=== PATIENT | female | born 1985 | race Caucasian/White ===

== ENCOUNTER 2019-02-16 18:28 | Emergency (ER) | payer MEDICAID ==
[~2019-02-16] VITALS: Ht 167.6 cm; Wt 122.5 kg
[2019-02-16 18:35] VITALS: BP 131/77
[2019-02-16] MEDS ORDERED: IBUPROFEN 600 MG TABLET PO ONE ×2 (18:42→19:00)
== END 2019-02-16 18:45 | disposition home or self-care (01) ==
LOC: ER 18:28
DX: J02.0 Streptococcal pharyngitis (principal); Z60.2 Problems related to living alone

== ENCOUNTER 2019-07-01 22:16 | Emergency (ER) | payer MEDICAID ==
[~2019-07-01] VITALS: Ht 170.2 cm; Wt 127.0 kg
[2019-07-01 22:29] VITALS: BP 127/69
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
--- NOTE | 2019-07-01 22:43 | NUR ---
URINE COLLECTED AND SENT TO LAB
[2019-07-01] MEDS ORDERED: CYCLOBENZAPRINE 10 MG TABLET ONE (23:46)
[2019-07-02] MEDS ORDERED: CYCLOBENZAPRINE 10 MG TABLET PO ONE
== END 2019-07-01 23:51 | disposition home or self-care (01) ==
LOC: ER 22:25
DX: M54.6 Pain in thoracic spine (principal); M54.2 Cervicalgia; Z60.2 Problems related to living alone; V49.59XA Passenger injured in collision with other motor vehicles in traffic accident, initial encounter; Y93.89 Activity, other specified; Y92.413 State road as the place of occurrence of the external cause; Y99.8 Other external cause status
CPT/HCPCS: 72050-TC; 84703-TC

== ENCOUNTER 2020-12-27 16:07 | Emergency (ER) | payer MEDICAID ==
[~2020-12-27] VITALS: Ht 170.2 cm; Wt 117.0 kg
--- NOTE | 2020-12-27 16:50 | NUR ---
BIBS. FEVER, CHILLS, COUGH, HEADACHE AND LOSS OF APPETITE X 1 WEEK. TOOK TYLENOL @ 1550. PATIENT A/OX4, BREATHING EVEN AND UNLABORED, NO SOB NOTED.
[2020-12-27] MEDS ORDERED: KETOROLAC TROMETHAMINE 15 MG/ML VIAL ONE (17:10)
[2020-12-27] MEDS ORDERED: GUAIFENESIN LA 600 MG TABLET.SA PO ONE ×2 (17:10→17:30)
[2020-12-27] MEDS ORDERED: IV NS 0.9% 1,000 ML BAG IV ONE (17:30)
[2020-12-27] MEDS ORDERED: KETOROLAC TROMETHAMINE INJ 30 MG/ML VIAL IV ONE (17:30)
[2020-12-27 17:34] LABS: BASOPHILS % (AUTO) 0.9 % (0.0-2.0); EOSINOPHILS % (AUTO) 0.1 % (0.0-6.0); HEMATOCRIT 38 % (33-45); HEMOGLOBIN 12.3 g/dL (11.5-14.8); LYMPHOCYTES # (AUTO) 1.2 /CMM (0.8-4.8); LYMPHOCYTES % (AUTO) 31.3 % (20.0-44.0); MEAN CORPUSCULAR HGB CONC 33 g/dl (31.0-36.0); MEAN CORPUSCULAR VOLUME 71 fL (82-100); MONOCYTES # (AUTO) 0.3 /CMM (0.1-1.30); MONOCYTES % (AUTO) 6.9 % (2.0-12.0); NEUTROPHILS # (AUTO) 2.3 /CMM (1.8-8.9); NEUTROPHILS % (AUTO) 60.8 % (43.0-81.0); PLATELET COUNT (AUTO) 170 /CMM (150-450); RED BLOOD CELL COUNT(AUTO) 5.26 MIL/uL (4.0-5.2); WHITE BLOOD COUNT (AUTO) 3.7 K/uL (4.3-11.0)
[2020-12-27 17:35] LABS: BILIRUBIN,URINE SMALL (NEGATIVE); COLOR,URINE YELLOW (YELLOW); LEUKOCYTE ESTERASE ,URINE Negative (NEGATIVE); NITRITE, URINE Negative (NEGATIVE); PROTEIN,URINE 30 mg/dl (NEGATIVE); UGLUCOSE Negative (NEGATIVE); UROBILINOGEN,URINE 0.2 EU/dL (0.2)
--- NOTE | 2020-12-27 17:35 | NUR ---
PATIENT RESTING, NO DISTRESS NOTED. IV FLUIDS INFUSING.
[2020-12-27 17:45] LABS: BACTERIA,URINE Few /HPF (None Seen); RBC,URINE 21-50 /HPF (0-2); SQUAMOUS EPITHELIAL CELL,UR Few /HPF (None Seen); WBC,URINE 0-2 /HPF (0-3)
--- NOTE | 2020-12-27 17:46 | NUR ---
FAXED CLINICAL SHEET TO [facility]
[2020-12-27 17:51] LABS: ALBUMIN 3.4 g/dL (3.4-5.0); BILIRUBIN,DIRECT 0.1 mg/dL (0.0-0.2); BILIRUBIN,TOTAL 0.3 mg/dL (0.2-1.0); CALCIUM, SERUM 8.4 mg/dL (8.5-10.1); CREATININE 0.8 mg/dL (0.6-1.3); POTASSIUM 3.4 mmol/L (3.5-5.1); TOTAL PROTEIN, SERUM 7.5 g/dL (6.4-8.2)
[2020-12-27] MEDS ORDERED: AZIT250T13 PO (18:09)
[2020-12-27] MEDS ORDERED: GUAI600T53 PO (18:09)
[2020-12-27] MEDS ORDERED: BENZ-13 PO (18:09)
[2020-12-27] MEDS ORDERED: AZITHROMYCIN 250 MG TABLET PO ONE (18:30)
[2020-12-27] MEDS ORDERED: AZITHROMYCIN 250 MG TABLET ONE (18:34)
--- NOTE | 2020-12-27 18:46 | NUR ---
COVID SWAB SENT TO LAB.
--- NOTE | 2020-12-27 18:52 | NUR ---
Patient a/ox4, breathing even and unlabored, no sob noted. Needs attended. IV removed. Catheter intact and site benign. Pressure and 4x4 applied to site. No bleeding noted.Patient discharged to home in stable condition. Written and verbal after care instructions given. Patient verbalizes understanding of instruction.
[2020-12-27 18:53] VITALS: BP 117/69
--- NOTE | 2020-12-28 15:47 | NUR ---
CENTR[employer] COMMUNICATION[employer] SPECIALIST CALLED & RECEIVED COVID RESULT: INDETERMINATE. CALLED PT ON HER CELLPHONE & RELAYED MESSAGE. PT ACKNOWLEDEGED WITH VERBAL UNDERSTANDING & STS THAT SHE WILL GET HER TEST REPEATED NEXT TO HER PLACE.
== END 2020-12-27 18:53 | disposition home or self-care (01) ==
LOC: ER 16:13
DX: J12.9 Viral pneumonia, unspecified (principal); M79.10 Myalgia, unspecified site; Z20.822 Contact with and (suspected) exposure to COVID-19
CPT/HCPCS: 36415; 71045; 80048; 80076; 81001; 83690; 84703; 85025; 96361; 96374; 99284; C9803; J1885; J7030; U0003